=== PATIENT | male | born 1945 | race Caucasian/White ===

== ENCOUNTER → 2020-08-07 09:28 | Outpatient (CLI) | payer MEDICARE, BC ==
[2015-10-09 12:16] VITALS: BMI 26.3
[~2020-08-07 09:28] MED LIST: BAYER CHEWABLE81 MG PO; ICAPS AREDS1 TAB.SA PO; MULTIPLE VITAMI1 TA1 PO; PRILOSEC10 MG PO; SYNTHROID50 MCG PO; ZOCOR40 MG PO
== END | disposition home or self-care (01) ==
LOC: D.HCCARDIO 09:28
PROVIDERS: ATTEND Internal Medicine Cardiovascular Disease
DX: I25.10 Atherosclerotic heart disease of native coronary artery without angina pectoris (principal)

== ENCOUNTER 2020-08-22 12:04 | Day surgery (SDC) | payer MEDICARE, BC ==
[~2020-08-22] VITALS: Ht 172.7 cm; Wt 78.9 kg
--- NOTE | ~2020-08-22 | HEMODYNAMI ---
PATIENT:SAMMI DELUNA MEDICAL RECORD: [id number] : 41 LOCATION:[facility] ADMISSION DATE: 08/22/20 Generatedon:08/22/202015:07 Patient name: SAMMI DELUNA Patient #: [id number] SSN: [id number] : 1945 Date of study: 08/22/2020 Page: Of Hemodynamic Procedure Report Patient Data Patient Demographics Procedure consent was obtained First Name: SAMMI Gender: Male Last Name: MIKIE : 1945 Middle Initial: WINNIE Age: 74 year(s) Patient #: [id number] Race: SSN: [id number] Additional ID: [id number] Contact details [address]: [address] [place] [address] State: [place] City: [place] Zip code: [address] Past Medical History Allergies: No known allergies Admission Admission Data Admission Date: 08/22/2020 Admission Time: 12:04 Lab Results Lab Result Date: 08/22/2020 Lab Result Time: 0:00 Biochemistry Name Units Result Min Max BUN mg/dl 17 --(---*)-- 7 18 Creatinine mg/dl 1.1 --(--*-)-- 0.6 1.3 eGFR ml/min 69 *-(----)-- 90 120 NONAFRICAN CBC Name Units Result Min Max Hematocrit % 43.4 --(*---)-- 42 54 Hemoglobin g/dl 14.5 --(*---)-- 13.5 17.5 Procedure Procedure Types Cath Procedure Diagnostic Procedure LHC [facility] w/Coronaries Sedation Charges Moderate Sedation up to 15 minutes Procedure Description Procedure Date Procedure Date: 08/22/2020 Procedure Start Time: 14:51 Procedure End Time: 15:05 Procedure Staff Name Function Toni Gonsales MD Performing Physician Nannette Jensen RT Scrub Jsas Dowell RN Nurse Mary Reid RT Monitor Miladis Castanon RT Supervisor Fabrication Department Procedure Data Cath Procedure Fluoroscopy Diagnostic fluoroscopy Total fluoroscopy Time: 2.5 time: 2.5 min min Diagnostic fluoroscopy Total fluoroscopy dose: 463 dose: 463 mGy mGy Contrast Material Contrast Material Type Amount (ml) Isovue 300 47 Entry Location Entry Primary Successful Side Size Upsize Upsize Entry Closure Finley ccessful Closure Location (Fr) 1 (Fr) 2 (Fr) Remarks Device Remarks Radial Right 6 Fr Manual artery Short Compression Estimated blood loss: 5 ml Diagnostic catheters Device Type Used For End Catheter Placement DIAGNOSTIC Adonay 110cm Procedure 5Fr catheter ([id number]) Procedure Complications No complications Procedure Medications Medication Administration Route Dosage 0.9% NaCl I.V. 100 ml/hr Oxygen etCO2 Nasal cannula 2 l/min Heparin Flush Bag added to field 2 bags (1000units/500ml NS) Lidocaine 2% added to field 20 Radial Cocktail added to field 1 syringe (Verapamil 2mg/Nitro 400mcg/Heparin 1500units) Versed I.V. 2 mg Fentanyl I.V. 100 mcg Radial Cocktail I.A. 1 syringe (Verapamil 2mg/Nitro 400mcg/Heparin 1500units) Hemodynamics Rest HGB: 14.5 (g/dl) Heart Rate: 51 (bpm) Pressure Samples Time Site Value (mmHg) Purpose Heart Use Rate(bpm) 14:55 LV 115/5,17 Snapshot 51 14:55 LV 112/4,15 Snapshot 48 14:56 AO 121/30(68) Pullback 56 14:56 LV 135/2,12 Pullback 56 Gradients Valve Time Site 1 Site 2 Mean SEP/DFP Peak To Heart Use (mmHg) (sec/min) Peak Rate (mmHg) (bpm) Aortic 14:56 LV AO 13 19 14 56 135/2,12 121/30(68) Calculations Valve P-P Mean Valve Index Valve Source Name Gradient Area Flow (cm2) Aortic 14 13 14 13 Snapshots Pre Cath Intra NCS Post Cath Vital Signs Time Heart Resp SPO2 etCO2 NIBP (mmHg) Rhythm Pain Sedation Rate (ipm) (%) (mmHg) Status Level (bpm) 14:25:05 52 17 100 40.4 147/65(127) NSR 0 (11) 10(A) , No pain 14:29:28 53 15 100 31.4 127/68(110) NSR 0 (11) 10(A) , No pain 14:33:46 52 10 98 0 123/72(93) NSR 0 (11) 10(A) , No pain 14:38:06 47 12 96 0 130/64(105) NSR 0 (11) 10(A) , No pain 14:42:30 46 17 97 23.9 129/57(105) NSR 0 (11) 10(A) , No pain 14:46:50 52 15 95 0 81/45(68) NSR 0 (11) 10(A) , No pain 14:51:49 52 12 96 0.7 124/60(97) NSR 0 (11) 9(A) , No pain 14:56:05 59 21 98 41.9 106/63(99) NSR 0 (11) 9(A) , No pain 15:00:19 60 13 95 35.1 115/60(87) NSR 0 (11) 10(A) , No pain 15:04:35 97 41.1 117/63(93) NSR 0 (11) 10(A) , No pain Medications Time Medication Route Dose Verified Delivered Reason Notes Effectiveness by by 14:28:00 0.9% NaCl I.V. 100 Jass Jass Per ml/hr Delmer Dowell physician RN RN 14:28:09 Oxygen etCO2 2 l/min Jass Jass for low 02 Nasal Lorigan Lorigan sats cannula RN RN 14:28:21 Heparin Flush added 2 bags Jass Jass used for Bag to Lorigan Lorigan procedure (1000units/500ml [facility] RN RN NS) 14:28:32 Lidocaine 2% added 20ml Jass Jass for local to vial Lorigan Lorigan anesthetic RN RN 14:28:44 Radial Cocktail added 1 Jass Jass used for (Verapamil to syringe Lorigan Lorigan procedure 2mg/Nitro field RN RN 400mcg/Heparin 1500units) 14:49:30 Versed I.V. 2 mg Jass Jass for sedation Delmer Dowell RN RN 14:49:39 Fentanyl I.V. 100 mcg Jass Jass for sedation Delmer Dowell RN RN 14:54:35 Radial Cocktail I.A. 1 Jass Toni for (Verapamil syringe Delmer Gonsales MD vasodilation 2mg/Nitro RN 400mcg/Heparin 1500units) Procedure Log Time Note 14:08:08 Nannette MARX(Silvia) sent for patient. Start room use. 14:12:40 Informed consent obtained and on chart 14:14:06 Procedure Status Elective Heart Cath (OP). 14:14:09 Time tracking: Regular hours (M-F 7:00 - 5:00) 14:14:12 Plan of Care:Hemodynamics will remain stable., Cardiac rhythm will remain stable., Comfort level will be maintained., Respiratory function will remain adequate., Patient/ family verbilizes understanding of procedure., Procedure tolerated without complication., Recovers from procedure without complications.. 14:14:19 H&P Date Dictated: 07/31/2020 Within 30 days and on chart., H&P Addendum completed by physician on day of procedure. (MUST COMPLETE FOR ALL OUTPATIENTS). 14:14:28 Patient allergic to No known allergies 14:23:30 Patient received from Pre/Post Procedure Room to CCL 1 Alert and oriented. Tansferred to table in Supine position. 14:23:45 Warm blankets applied, and kimo hugger turned on for patient comfort. 14:23:46 Correct patient and procedure confirmed by team. 14:23:47 ECG and BP/O2 sat monitors applied to patient. 14:23:51 Vital chart was started 14:23:53 Baseline sample Acquired. 14:23:57 Rhythm: sinus rhythm 14:23:59 Full Disclosure recording started 14:24:00 - 14:24:01 Pre-procedure instructions explained to patient. 14:24:02 Pre-op teaching completed and patient verbalized understanding. 14:24:04 Family in patients room. 14:24:07 Patient NPO since Midnight. 14:24:17 Is the patient allergic to Iodine/contrast media? No. 14:24:30 Was the patient premedicated? Yes 14:24:45 Is patient on blood thinner?No 14:24:49 Patient diabetic? No. 14:24:51 ----Pre-sedation anethsthesia assessment.---- 14:24:55 Previous problem with sedation/anesthesia? No ? 14:24:58 Snore? Yes 14:25:01 Sleep apnea? No 14:25:03 Deviated septum? Unknown 14:25:06 Opens mouth fully? Yes 14:25:09 Sticks out tongue? Yes 14:25:16 Airway obstruction? No ? 14:25:19 Dentures? No ? 14:25:39 Pre procedure: right dorsailis pedis pulse 2+ Normal; easily identifiable; not easily obliterated 14:25:46 IV patent on arrival in left forearm with 0.9% NaCl at [facility]. 14:28:00 0.9% NaCl 100 ml/hr I.V. was administered by Jass Dowell RN; Per physician; Verbal order read back and verified. 14:28:09 Oxygen 2 l/min etCO2 Nasal cannula was administered by Jass Dowell RN; for low 02 sats; Verbal order read back and verified. 14:28:21 Heparin Flush Bag (1000units/500ml NS) 2 bags added to field was administered by Jass Dowell RN; used for procedure; Verbal order read back and verified. 14:28:32 Lidocaine 2% 20ml vial added to field was administered by Jass Dowell RN; for local anesthetic; Verbal order read back and verified. 14:28:35 Lab Result : BUN 17 mg/dl 14::35 Lab Result : eGFR NONAFRICAN 69 ml/min 14:28:35 Lab Result : Creatinine 1.1 mg/dl 14:28:35 Lab Result : Hemoglobin 14.5 g/dl 14::35 Lab Result : Hematocrit 43.4 % 14:28:41 Lab results completed and on chart. 14:28:44 Radial Cocktail (Verapamil 2mg/Nitro 400mcg/Heparin 1500units) 1 syring e added to field was administered by Jass Dowell RN; used for procedure; Verbal order read back and verified. 14:29:05 Stress Test: yes; abnormal APICAL AND ANTERIOR 14:29:11 Right Radial & Right Groin area was prepped with chlora-prep and draped in sterile fashion 14:29:13 Alarms reviewed by R. N. 14:29:14 Sharps counted by scrub and verified by R.N. 14:29:22 Use device set Radial Dx or PCI 14:29:24 ACIST Syringe (00163) opened to sterile field. 14:29:25 Medline Cath Pack ([id number]) opened to sterile field. 14:29:25 Bag Decanter (2002) opened to sterile field. 14:29:26 ACIST Hand Control (52113) opened to sterile field. 14:29:27 ACIST Manifold (93275) opened to sterile field. 14:29:29 MBrace Wrist Support ([id number]) opened to sterile field. 14:29:30 NEEDLE Cook 21G 4cm Radial ([id number]) opened to sterile field. 14:29:31 SHEATH 6FR RAIN (6744568) opened to sterile field. 14:29:32 EMERALD Guide Wire (895-458) opened to sterile field. 14:34:15 ACC Patient presents with Stable Angina CCS Anginal Class 3--Marked limitation of physical activity, angina occurs with ordinary activity.. 14:36:51 Risk of Mortality: 0.1 14:36:56 Risk of blood transfusion: 0.2 14:37:01 Risk of SANDRA: 0.8 14:45:21 Physician arrived 14:45:22 --------ALL STOP TIME OUT------ 14:45:22 Final Timeout: patient, procedure, and site verified with staff and physician. All members of the team are in agreement. 14:45:25 Right Radial & Right Groin site verified by team. 14:45:32 Fire Safety Assessment: A--An alcohol-based skin anteseptic being used preoperatively., C--Open oxygen or nitrous oxide is being used., D--An ESU, laser, or fiber-optic light is being used. 14:45:44 Physical assessment completed. ASA score P 2 - A patient with mild systemic disease as per Toni Gonsales MD. 14:47:23 2) 60-89 Mildly reduced kidney function, and other findings (as for stage 1) point to kidney disease. 14:47:35 Maximum allowable contrast dose (3.7 X eGFR X 0.75)191 ml. 14:47:56 Sedation plan: IV Moderate Sedation Medication:Versed, Fentanyl 14:49:13 Zero performed for pressure channel P1 14:49:30 Versed 2 mg I.V. was administered by Jass Lorigan RN; for sedation; Verbal order read back and verified. 14:49:39 Fentanyl 100 mcg I.V. was administered by Jass Dowell RN; for sedation; Verbal order read back and verified. 14:51:43 Procedure started. 14:51:51 Local anesthetic to right radial artery with Lidocaine 2% by Toni Gonsales MD.INITIAL ACCESS ONLY 14:54:02 A 6 Fr Short sheath was inserted into the Right Radial artery 14:54:32 A DIAGNOSTIC Adonay 110cm 5Fr catheter ([id number]) was advanced over the wire and used for Procedure. 14:54:35 Radial Cocktail (Verapamil 2mg/Nitro 400mcg/Heparin 1500units) 1 syring e I.A. was administered by Toni Gonsales MD; for vasodilation; Verbal order read back and verified. 14:55:02 Injector settings: Ml/sec: 5, Volume: 15, 14:55:07 LV gram done using PINO 14:55:53 EF : 55 % 14:56:09 LV hemodynamics recorded. 14:56:40 LCA angiography performed. 14:56:46 Injector settings: Ml/sec: 3, Volume: 6, 14:59:07 RCA angiography performed. 14:59:12 Injector settings: Ml/sec: 3, Volume: 6, 15:01:57 ZEPHYR REGULAR TR BAND ([id number]) opened to sterile field. 15:02:00 Catheter removed. 15:02:13 Sheath removed intact; hemostasis achieved with Manual Compression to the Right Radial artery. 15:02:17 Procedure ended.(Physican Out) 15:02:58 Contrast amount:Isovue 300 47ml. 15:03:06 Fluoroscopy time 02.50 minutes. 15:03:12 Flurop Dose total: 463 15:03:12 Fluoroscopy dose: 463 mGy 15:03:20 Dose Area Product 71343 mGy/cm. 15:03:24 Maximum allowable dose exceeded? No. 15:03:25 Sharps counted by scrub and verified by R.N. 15:03:28 Kneeland band inflated with 10cc of air. 15:03:31 Insertion/operative site no bleeding no hematoma. 15:03:40 Post right radial artery:stable 15:03:45 Post-procedure physical assessment completed. ASA score P 2 - A patient with mild systemic disease as per Toni Gonsales MD. 15:03:49 Post procedure rhythm: unchanged. 15:03:53 Estimated blood loss: 5 ml 15:03:55 Post procedure instruction explained to patient.Patient verbalizes understanding. 15:03:56 Patient needs reinforcement of post procedure teaching. 15:04:50 Procedure type changed to Cath procedure, Diagnostic procedure, LHC, LH C w/Coronaries, Sedation Charges, Moderate Sedation up to 15 minutes 15:04:52 Procedure and supply charges have been captured, reviewed, submitted an d are correct. 15:05:02 Procedure Complication : No complications 15:05:06 Vital chart was stopped 15:05:08 [facility] Findings: mild to moderate CAD (<70%) 15:05:14 See physician's report for complete and final results. 15:05:16 Report given to Pre/Post Procedure Room. 15:05:21 Patient transfered to Pre/Post Procedure Room with Stretcher. 15:05:25 Procedure ended. 15:05:25 Full Disclosure recording stopped 15:05:28 End room use (Document Last) Device Usage Item Name Manufacture Quantity Catalog Hospital Part Current Minima l Lot# / Number Charge Number Stock Stock Serial# Code ACIST Acist 1 25188 [id number] [id number] [id number] 20 Syringe Medical (55267) Systems Inc Medline Medline 1 [id number] 27267 817521 5 Cath Pack ([id number]) Bag Microtek 1 824766 99119 964626 5 Decanter Medical Inc. () ACIST Hand Acist 1 88369 310400 121075 921322 5 Control Medical (05466) Systems Inc ACIST Acist 1 08054 998435 896577 934006 5 Manifold Medical (81472) Systems Inc MBrace Advanced 1 [id number] 615448 97640 551211 5 Wrist Vascular Support Dynamics ([id number]) NEEDLE Cook Cook Medical 1 [id number] 149092 854250 102963 5 21G 4cm Radial (X89157) SHEATH 6FR Cardinal 1 0389353 126551 [id number] 590623 5 [facility] (5670395) EMERALD Cardinal 1 098-303 810783 482282 315680 5 Guide Wire [facility] (394-968) DIAGNOSTIC Terumo 1 405023 155932 983975 630019 5 Adonay 110cm 5Fr catheter (924133) ZEPHYR Cardinal 1 636293 055209 0935848 717476 5 REGULAR TR Health BAND (227022) Signature Audit [place] Stage Time Signature Unsigned Intra-Procedure 08/22/2020 Mary 3:06:22 PM Franklin RT(R) (CV) Intra-Procedure 08/22/2020 Jass 3:06:49 PM Delmer NAIR Intra-Procedure 08/22/2020 Toni Gonsales MD 3:07:20 PM [facility] [address] [place] [address]
[~2020-08-22 12:04] MED LIST changes: +OMEPRAZOLE20 M1 PO; -PRILOSEC10 MG PO
[2020-08-22] MEDS ORDERED: LOSARTAN-HCTZ1 EAC1 PO (12:16)
[2020-08-22] MEDS ORDERED: ZYRTEC10 MG PO (12:19)
[2020-08-22] MEDS ORDERED: CARBATROL100 MG PO (12:19)
[2020-08-22 12:29] VITALS: BP 136/54; Ht 172.7 cm; Wt 78.9 kg
[2020-08-22 12:39] LABS: BASOPHILS 0.2 % (0-2); EOSINOPHILS 1.7 % (0-7); HEMATOCRIT 43.4 % (42.0-54.0); HEMOGLOBIN 14.5 g/dL (13.5-17.5); IMMATURE GRANULOCYTES 0.1 % (0-5); LYMPHOCYTES 26.6 % (15-50); MCH 30.3 pg (26.0-34.0); MCHC 33.4 g/dL (31.0-37.0); MCV 90.6 fL (80.0-100.0); MEAN PLATELET VOLUME 10.6 fL (7.4-10.4); MONOCYTES 8.5 % (2-11); NEUTROPHILS 62.9 % (40-80); RBC 4.79 10x6/uL (4.20-6.10); RDW 12.5 % (11.5-14.5); WBC 9.9 10x3/uL (4.8-10.8)
[2020-08-22 12:41] LABS: PLATELET COUNT 165 10x3/uL (130-400)
[2020-08-22 12:54] LABS: LDL-HDL RATIO 2.4 ratio (1.5-3.5)
[2020-08-22 13:28] LABS: ANION GAP 12.5 mmol/L (8-16); CALCIUM 9.1 mg/dL (8.5-10.1); CARBON DIOXIDE 25.4 mmol/L (21.0-32.0); CREATININE - SERUM 1.1 mg/dL (0.6-1.3); POTASSIUM - SERUM 3.9 mmol/L (3.5-5.1)
--- NOTE | 2020-08-22 15:13 | NUR ---
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 PT SLEEPING BUT VERBALLY AROUSABLE. IV PATENT INFUSING VIA L ARM PER ORDERS. PT PLACED ON CARDIAC MONITORS AND O2 VIA NC AT 2L. ZYPHER BAND AND IMMOBILIZER TO R WRIST/ARM, NO S/S HEMATOMA OR BLEEDING. ARM PINK AND WARM, CAP REFILL BRISK. HR SB RATE 49, BP 135/56, RR 10, SAT 96. PT INSTRUCTED NOT TO USE ARM, HE VERBALIZED UNDERSTANDING. DR WYATT IN ROOM SPOKE WITH PRIOR TO PT ARRIVAL REGARDING PROCEDURE RESULTS AND PLAN OF CARE. CALL LIGHT IN REACH
--- NOTE | 2020-08-22 15:32 | NUR ---
PT RESTING COMFORTABLY, DENIES PAIN OR NEEDS. ZBAND AND IMMOBILIZER IN PLACE, NO S/S HEMATOMA OR BLEEDING. VSS AT PRESENT. ARM PINK AND WARM, CAP REFILL BRISK
--- NOTE | 2020-08-22 16:03 | NUR ---
4cc AIR REMOVED FROM Z BAND, NO BLEEDING OR S/S HEMATOMA NOTED. HOB ELEVATED PT MORE AWAKE. SANDWICH TRAY SERVED. CALL LIGHT IN REACH, AT BS
--- NOTE | 2020-08-22 16:20 | NUR ---
2 ADD'L CC AIR REMOVED FROM Z BAND, NO BLEEDING NOTED. PT TOLERATED FOOD AND DRINK W/O DIFFICULITY. VSS AT PRESENT. CALL LIGHT IN REACH, AT BS.
--- NOTE | 2020-08-22 16:33 | NUR ---
REPORT GIVEN TO Vivek JASSO RN TO ASSUME CARE.
--- NOTE | 2020-08-22 16:35 | NUR ---
CARE ASSUMED, VSS. ALL AIR REMOVED FROM Z BAND, NO S/S BLEEDING OR HEMATOMA. VSS. PT DENIES PAIN OR NEEDS. C/L IN REACH.
--- NOTE | 2020-08-22 16:50 | NUR ---
R WRIST SITE C/D/I, NO S/S BLEEDING. Z BAND REMOVED AND DSG APPLIED. ALL DISCHARGE INSTRUCTIONS REVIEWED WITH PT AND - BOTH VERBALIZE UNDERSTANDING.
--- NOTE | 2020-08-22 16:55 | NUR ---
PIV D/C'D INTACT, DSG APPLIED, PT ALLOWED UP TO GET DRESSED AND GO TO BR INDEPENDENTLY. ASSISTING PT NEEDED.
--- NOTE | 2020-08-22 17:00 | NUR ---
PT D/C'D VIA WC TO PRIVATE VEHICLE WITH ALL PAPERWORK AND BELONGINGS.
== END 2020-08-22 17:00 | disposition home or self-care (01) ==
LOC: D.CATH 12:04
PROVIDERS: ATTEND Internal Medicine Cardiovascular Disease
DX: I25.119 Atherosclerotic heart disease of native coronary artery with unspecified angina pectoris (principal); R94.39 Abnormal result of other cardiovascular function study; E03.9 Hypothyroidism, unspecified; E78.5 Hyperlipidemia, unspecified; I10 Essential (primary) hypertension

== ENCOUNTER → 2021-03-15 08:13 | Outpatient (CLI) | payer MEDICARE, BC ==
[2020-08-22 12:29] VITALS: BMI 26.4
[~2021-03-15 08:13] MED LIST changes: +CARBATROL100 MG PO; +LOSARTAN-HCTZ1 EAC1 PO; +ZYRTEC10 MG PO
== END | disposition home or self-care (01) ==
LOC: D.HCCECHO 08:13
PROVIDERS: ATTEND Internal Medicine Cardiovascular Disease
DX: I34.0 Nonrheumatic mitral (valve) insufficiency (principal)